=== PATIENT | male | born 1985 | race Hispanic/Latino ===

== ENCOUNTER 2022-10-11 13:04 | Emergency (ER) | payer OTHER ==
[2022-10-11] MEDS ORDERED: FLUORESCEIN SODIUM 1 MG/WRAP ONE (13:48)
--- NOTE | 2022-10-11 14:05 | EDPHYS ---
Physician Documentation [facility] Name: Chapin Valentino Age: 37 yrs Sex: Male : 1985 Arrival Date: 10/11/2022 Time: 13:04 Bed 5 Private MD: ED Physician Costa Iyer HPI: 10/11 13:13 This 37 yrs old Male presents to ER via EMS with complaints of possible Chemical rn Exposure In Eye. 13:13 The patient is experiencing burning, The patient sustained Unknown. caused by rn chemicals. Onset: The symptoms/episode began/occurred 1.25 hour(s) ago. Duration: the symptoms are continuous. Aggravated by rubbing, Alleviated by. Associated signs and symptoms: Pertinent negatives: fever, headache. Patient wears soft contacts. Severity of symptoms: At their worst the symptoms were moderate in the emergency department the symptoms have improved. The patient has not experienced similar symptoms in the past. Pt reports was disconnecting something, wearing full PPE, after completed work, was wiping sweat off face with paper towel, then began to feel burning sensation in right eye. No direct splash or prolonged exposure. Was working with phenol so thought may have rubbed some into eye. No other complaints. Eye washed for 30 min, then EMS placed ruslan lens after tetracaine drops, and continue to irrigate. . Historical: - Allergies: 13:12 No Known Allergies; bp - Home Meds: 13:12 None [Active]; bp - PMHx: 13:12 None; bp - PSHx: 13:12 None; bp - Immunization history:: Adult Immunizations up to date. - Social history:: Smoking status: Patient denies any tobacco usage or history of. - Family history:: not pertinent. - Hospitalizations: : No recent hospitalization is reported. ROS: 13:13 Constitutional: Negative for fever, chills, and weight loss, Eyes: + right eye burning rn sensation Cardiovascular: Negative for chest pain, palpitations, and edema, Respiratory: Negative for shortness of breath, cough, wheezing, and pleuritic chest pain, Abdomen/GI: Negative for abdominal pain, nausea, vomiting, diarrhea, and constipation, MS/Extremity: Negative for injury and deformity, Skin: Negative for injury, rash, and discoloration, Neuro: Negative for headache, weakness, numbness, tingling, and seizure. Exam: 13:13 Constitutional: This is a well developed, well nourished patient who is awake, alert, rn and in no acute distress. Head/Face: Normocephalic, atraumatic. Eyes: Pt with ruslan lens right eye, no periorbital or forehead skin color changes, no blanching of skin ENT: No oral swelling or stridor Cardiovascular: Regular rate and rhythm. No pulse deficits. Respiratory: No increased work of breathing, no retractions or nasal flaring. Skin: Warm, dry, no skin discoloration of hands or face MS/ Extremity: Pulses equal, no cyanosis. Neuro: Awake and alert, GCS 15 Vital Signs: 13:06 Pulse 88; Resp 18; Temp 99(O); Pulse Ox 100% ; Weight 81.65 kg; Height 5 ft. 8 in. ; bp 13:14 BP 136 / 89; bp 14:03 BP 139 / 89; Pulse 74; Resp 18; Pulse Ox 100% on R/A; mb9 13:06 Body Mass Index 27.37 (81.65 kg, 172.72 cm) bp MDM: 13:09 Patient medically screened. rn 13:57 ED course: Patient had eye wash at site of injury, then ruslan lens for 30 min. pH rn after irrigation and rest shows pH of 7.5, and fluorescein staining does not reveal any evidence of superficial injury. Denies changes in vision, reports blurred but at baseline because doesn't have contacts in right now. . 14:03 Differential diagnosis: chemical conjunctivitis, scleral burn, corneal burn, other rn foreign body. Data reviewed: vital signs, nurses notes, and as a result, I will discharge patient. Counseling: I had a detailed discussion with the patient and/or guardian regarding: the historical points, exam findings, and any diagnostic results supporting the discharge/admit diagnosis, the need for outpatient follow up, to return to the emergency department if symptoms worsen or persist or if there are any questions or concerns that arise at home. Special discussion: I discussed with the patient/guardian in detail that at this point there is no indication for admission to the hospital. It is understood, however, that if the symptoms persist or worsen the patient needs to return immediately for re-evaluation. Based on the history and exam findings, there is no indication for further emergent testing or inpatient evaluation. I discussed with the patient/guardian the need to see the opthamologist for further evaluation of the symptoms. 14:03 ED course: Pt feels much better, will dc home.. rn 10/11 13:09 Order name: Luis. Order: continue eye irrigation through ruslan lens; Complete Time: rn 13:14 Administered Medications: 14:06 Drug: Fluorescein Ophthalmic Strip 1 strip Route: Ophthalmic; Site: right eye; mb9 Disposition Summary: 10/11/22 14:04 Discharge Ordered Location: Home rn Problem: new rn Symptoms: have improved rn Condition: Stable rn Diagnosis - Ocular pain, right eye - Possible phenol exposure rn Followup: rn - With: Private Physician - When: As needed - Reason: Recheck today's complaints, Re-evaluation by your physician Discharge Instructions: - Discharge Summary Sheet rn - Chemical Conjunctivitis, Adult rn - Chemical Burn of the Eyes, Adult rn Forms: - Medication Reconciliation Form rn - Thank You Letter rn - Antibiotic food and beverage intern - Prescription Opioid Use rn - Work release form mb9 Signatures: Costa Iyer MD MD rn Peltier, Brian, RN RN bp Breneman, Mary Beth RN RN mb9
--- NOTE | 2022-10-11 14:05 | ER ---
Nurse's Notes [facility] Name: Chapin Valentino Age: 37 yrs Sex: Male : 1985 Arrival Date: 10/11/2022 Time: 13:04 Bed 5 Private MD: Diagnosis: Ocular pain, right eye-Possible phenol exposure Presentation: 10/11 13:06 Chief complaint: EMS states: "Pt rubbed right eye that had Phenol on it without gloves bp on. Pts right eye started burning and immediately went to eye wash station at noon and stayed there for 30 minutes. Applied Ritesh's lens to right eye and 2 drops of tetracaine. Pt states eyes are hazy now and still burning". Coronavirus screen: Vaccine status: Patient reports being unvaccinated. Ebola Screen: No symptoms or risks identified at this time. Initial Sepsis Screen: Does the patient meet any 2 criteria? No. Patient's initial sepsis screen is negative. Does the patient have a suspected source of infection? No. Patient's initial sepsis screen is negative. Risk Assessment: Do you want to hurt yourself or someone else? Patient reports no desire to harm self or others. Onset of symptoms was October 11, 2022. 13:06 Method Of Arrival: EMS: [facility] bp 13:06 Acuity: JUSTINA 3 bp Triage Assessment: 13:12 General: Appears uncomfortable, Behavior is cooperative, appropriate for age. Pain: bp Complains of pain in right eye Quality of pain is described as burning. EENT: Sclera/Cornea are reddened in outer aspect of conjuctiva of right eye, iris of right eye and inner aspect of conjuctiva of right eye. Neuro: Yeh Agitation-Sedation Scale (RASS): 0 - Alert and Calm Level of Consciousness is awake, alert, obeys commands, Oriented to person, place, time, situation, Appropriate for age. Respiratory: Airway is patent Respiratory effort is even, unlabored, Respiratory pattern is regular, symmetrical. Derm: Skin is pink, warm \\T\\ dry. Musculoskeletal: Range of motion: intact in all extremities. Historical: - Allergies: 13:12 No Known Allergies; bp - Home Meds: 13:12 None [Active]; bp - PMHx: 13:12 None; bp - PSHx: 13:12 None; bp - Immunization history:: Adult Immunizations up to date. - Social history:: Smoking status: Patient denies any tobacco usage or history of. - Family history:: not pertinent. - Hospitalizations: : No recent hospitalization is reported. Screenin:13 [facility] ED Fall Risk Assessment (Adult) History of falling in the last 3 months, bp including since admission No falls in past 3 months (0 pts) Confusion or Disorientation No (0 pts) Intoxicated or Sedated No (0 pts) Impaired Gait No (0 pts) Mobility Assist Device Used No (0 pt) Altered Elimination No (0 pt) Score/Fall Risk Level 0 - 2 = Low Risk Oriented to surroundings, Maintained a safe environment, Educated pt \\T\\ family on fall prevention, incl call for assistance when getting out of bed. Abuse screen: Denies threats or abuse. Nutritional screening: No deficits noted. Tuberculosis screening: No symptoms or risk factors identified. Assessment: 13:13 Reassessment: see triage assessment. bp 13:22 Reassessment: Spoke to [employer] control, , recommends continuing to mb9 irrigate eye for 30 minutes, then stain eye to assess for cornea injury, iritis and blindness. Use Litmus paper for pH goal of 7.2-8.0. Transfer pt as needed for damage or emergent ophthalmology.". 14:06 Reassessment: Patient and/or family updated on plan of care and expected duration. Pain mb9 level reassessed. Patient is alert, oriented x 3, equal unlabored respirations, skin warm/dry/pink. Patient states feeling better. Patient states symptoms have improved. Vital Signs: 13:06 Pulse 88; Resp 18; Temp 99(O); Pulse Ox 100% ; Weight 81.65 kg; Height 5 ft. 8 in. ; bp 13:14 BP 136 / 89; bp 14:03 BP 139 / 89; Pulse 74; Resp 18; Pulse Ox 100% on R/A; mb9 13:06 Body Mass Index 27.37 (81.65 kg, 172.72 cm) bp ED Course: 13:06 Patient arrived in ED. ld1 13:06 Arm band placed on. bp 13:09 Costa Iyer MD is Attending Physician. rn 13:12 Triage completed. bp 13:13 Placed in gown. Bed in low position. Call light in reach. Side rails up X 1. Client bp placed on continuous cardiac and pulse oximetry monitoring. NIBP monitoring applied. 13:13 No provider procedures requiring assistance completed. bp 13:27 Rosario Cote, RN is Primary Nurse. mb9 14:06 Patient did not have IV access during this emergency room visit. mb9 Administered Medications: 14:06 Drug: Fluorescein Ophthalmic Strip 1 strip Route: Ophthalmic; Site: right eye; [id number] Medication: 13:14 VIS not applicable for this client. bp Outcome: 14:04 Discharge ordered by . rn 14:06 Discharged to home ambulatory. mb9 14:06 Condition: stable 14:06 Discharge instructions given to patient, Instructed on discharge instructions, follow up and referral plans. Demonstrated understanding of instructions, follow-up care. 14:10 Patient left the ED. mb9 Signatures: Costa Iyer MD MD rn Peltier, Brian RN RN bp Elizabeth Jaramillo RN RN ld1 Rosario Cote, RN RN mb9 Corrections: (The following items were deleted from the chart) 14:10 14:03 BP 139 / 89; ld1 luis
[2022-10-11 14:16] VITALS: TEMP 99; O2SAT 100
[2022-10-11 14:19] VITALS: BP 139/89
== END 2022-10-11 14:10 | disposition home or self-care (01) ==
LOC: ER 13:04
DX: H92.01 Otalgia, right ear (principal)
CPT/HCPCS: 99283